=== PATIENT | female | born 1980 | race Caucasian/White ===

== ENCOUNTER 2020-06-10 08:34 | Outpatient (REF) | payer OTHER, SELFPAY ==
--- NOTE | ~2020-06-10 | MM_ITS ---
EXAMINATION: MM SCREENING DIGITAL BREAST TOMOSYNTHESIS, BILATERAL CLINICAL INFORMATION: Screening. Asymptomatic. The lifetime risk of breast cancer based on the Tyrer-Cuzick Model is 13%. COMPARISON: Mammography: 06/05/2019, 05/30/2018, 04/21/2017 TECHNIQUE: Digital breast tomosynthesis is performed in both the craniocaudal and mediolateral oblique views along with computer-aided detection (CAD). Synthesized 2D images are generated from the tomosynthesis. FINDINGS: There are scattered areas of fibroglandular density (ACR BI-RADS breast composition Category b). There are no significant masses, abnormal calcifications, or other abnormalities. Parenchymal pattern is similar to prior studies. No significant changes. MM/MM tomosynthesis screening BI IMPRESSION: No mammographic evidence of malignancy. ASSESSMENT: BI-RADS 1: Negative RECOMMENDATION: Routine annual mammography screening. This patient's information was entered into a reminder system with a target due date for their next mammogram.
== END 2020-06-10 08:35 | disposition home or self-care (01) ==
LOC: HO.MAMMO 08:34
PROVIDERS: PCP Obstetrics & Gynecology; Visit Provider Obstetrics & Gynecology
DX: Z12.31 Encounter for screening mammogram for malignant neoplasm of breast (principal)
CPT/HCPCS: 77063; 77067

== ENCOUNTER 2020-09-03 08:01 | Outpatient (REF) | payer OTHER, SELFPAY ==
[2020-09-03 10:56] LABS: TSH reflex Free T4 1.22 uIU/mL (0.32-4.0)
[2020-09-04 09:11] LABS: BV Int Neg Control Negative (Negative); BV Int Pos Control Positive (Positive)
[2020-09-07 04:27] LABS: HPV mRNA E6/E7 rflx Not Detected (Not Detected)
== END 2020-09-03 08:02 | disposition home or self-care (01) ==
LOC: HO.LAB 08:01
PROVIDERS: Visit Provider Obstetrics & Gynecology
DX: Z01.419 Encounter for gynecological examination (general) (routine) without abnormal findings (principal); N93.9 Abnormal uterine and vaginal bleeding, unspecified; Z20.2 Contact with and (suspected) exposure to infections with a predominantly sexual mode of transmission
CPT/HCPCS: 36415; 58100; 84443; 87480; 87510; 87624; 87660; 88142; 88305

== ENCOUNTER → 2020-09-11 11:31 | Outpatient (BNVA) | payer OTHER, SELFPAY | PROVIDERS: Visit Provider Obstetrics & Gynecology ==